=== PATIENT | male | born 1970 | race American Indian/Alaskan Native ===

== ENCOUNTER 2017-02-10 11:36 | Emergency (ER) | payer BC ==
[2017-02-10 11:43] VITALS: TEMP 97.8
[2017-02-10] MEDS ORDERED: Sodium Chloride 0.9% 1,000 ML IV ONE (12:10)
[2017-02-10] MEDS ORDERED: Sodium Chloride 0.9% 1,000 ML ONE (12:23)
[2017-02-10 12:27] LABS: BASO # 0.1 K/uL (0.0-0.2); EOS % 0.6 % (0.0-4.0); HEMATOCRIT 41.8 % (35.0-51.0); LYMPH # 2.4 K/uL (1.0-4.3); LYMPH % 29.5 % (20.0-40.0); MEAN CELL VOLUME 91.2 fL (80.0-94.0); MEAN CORPUSCULAR HEMOGLOBIN 30.8 pg (27.0-31.0); MEAN CORPUSCULAR HGB CONC 33.8 g/dL (33.0-37.0); MEAN PLATELET VOLUME 8.1 fL (7.2-11.7); MONO # 0.8 K/uL (0.0-0.8); MONO % 9.4 % (0.0-10.0); NRBC % 0.1 % (0.0-2.0)
[2017-02-10 12:35] LABS: CHLORIDE 99 mmol/L (98-107); SODIUM 139 mmol/L (132-148)
[2017-02-10 12:37] LABS: AST/SGOT 29 U/L (17-59); BILIRUBIN,TOTAL 1.3 mg/dL (0.2-1.3); CARBON DIOXIDE 25 mmol/L (22-30); GFR AFRICAN-AMERICAN > 60
[2017-02-10 12:38] LABS: ALB/GLOB RATIO 1.4 (1.0-2.1); ALKALINE PHOSPHATASE 48 U/L (38-126); ALT/SGPT 24 U/L (21-72); BLOOD UREA NITROGEN 15 mg/dL (9-20); CALCIUM 8.7 mg/dl (8.6-10.4); GLUCOSE,RANDOM 85 mg/dL (75-110); TOTAL PROTEIN 7.5 g/dL (6.3-8.3)
--- NOTE | 2017-02-10 12:42 | C.PDOC ---
History Of Present Illness 46 y/o male no prior history presents to the ED with complains of abdominal pain which onset yesterday with associated nausea. Pain is worse in the epigastric region. Pt denies vomiting, diarrhea, chest pain, SOB, bloody stool or any other complaints. Pt started endomethacin for leg pain yesterday. Time Seen by Provider: 02/10/17 12:08 Chief Complaint (Nursing): Abdominal Pain History Per: Patient History/Exam Limitations: no limitations Onset/Duration Of Symptoms: Hrs Severity: Moderate Location Of Pain/Discomfort: Epigastric Radiation Of Pain To:: None Quality Of Discomfort: "Pain" Associated Symptoms: Nausea. denies: Fever, Chills, Vomiting Exacerbating Factors: None Alleviating Factors: None Recent travel outside of the [place]: No Past Medical History Reviewed: Historical Data, Nursing Documentation, Vital Signs Vital Signs: Last Vital Signs Temp 97.8 F 02/10/17 11:41 Pulse 66 02/10/17 13:32 Resp 16 02/10/17 13:32 BP 124/75 02/10/17 13:32 Pulse Ox 100 02/10/17 13:32 Family History: States: Unknown Family Hx - Social History Hx Alcohol Use: No (PT DENIES) Hx Substance Use: No (PT DENIES) - Immunization History Hx Tetanus Toxoid Vaccination: No Hx Influenza Vaccination: No Hx Pneumococcal Vaccination: No Review Of Systems Except As Marked, All Systems Reviewed And Found Negative. Constitutional: Negative for: Fever, Chills Cardiovascular: Negative for: Chest Pain Respiratory: Negative for: Shortness of Breath Gastrointestinal: Positive for: Nausea, Abdominal Pain. Negative for: Vomiting , Hematochezia Physical Exam - Physical Exam Appears: Non-toxic, No Acute Distress Skin: Warm, Dry, No Rash Head: Atraumatic, Normacephalic Neck: Normal ROM, Supple Chest: Symmetrical Cardiovascular: Rhythm Regular, No Murmur Respiratory: Normal Breath Sounds, No Rales, No Rhonchi, No Wheezing Gastrointestinal/Abdominal: Soft, Tenderness (epigastric), No Guarding, No Rebound Extremity: Normal ROM, No Pedal Edema Extremity: Bilateral: Atraumatic Neurological/Psych: Oriented x3, Normal Motor, Normal Sensation ED Course And Treatment - Laboratory Results Result Diagrams: 02/10/17 12:20 02/10/17 12:20 O2 Sat by Pulse Oximetry: 99 (on room air) Pulse Ox Interpretation: Normal Medical Decision Making Medical Decision Making: consider pud, gastritis, pancreatiits Plan: * labs * UA * IV fluids * Zofran, protonix * 203: bedside US shows no gallbladder pathology. pain improved. will d/c Disposition - Disposition Referrals: Efren Argueta MD [Staff Provider] - Disposition: HOME/ ROUTINE Disposition Time: 14:02 Condition: STABLE Additional Instructions: please follow up with your doctor. return to er with worsening symptoms or concerns. Prescriptions: Famotidine [Pepcid] 20 mg PO DAILY #20 tab Instructions: Acute Abdominal Pain (ED) - Clinical Impression Clinical Impression: Abdominal pain - Scribe Statement The provider has reviewed the documentation as recorded by the Fercho Rajan Provider Attestation: All medical record entries made by the Fercho were at my direction and personally dictated by me. I have reviewed the chart and agree that the record accurately reflects my personal performance of the history, physical exam, medical decision making, and the department course for this patient. I have also personally directed, reviewed, and agree with the discharge instructions and disposition.
[2017-02-10 12:43] LABS: RBC URINE 2 /hpf (0-3); URINE BACTERIA RARE (<OCC); URINE BILIRUBIN NEGATIVE (NEGATIVE); URINE BLOOD NEGATIVE (NEGATIVE); URINE COLOR Yellow (YELLOW); URINE GLUCOSE (UA) NORMAL (Normal); URINE KETONE 1+ mg/dL (NEGATIVE); URINE LEUKOCYTE ESTERASE NEG Leu/uL (Negative); URINE PROTEIN NEGATIVE (NEGATIVE); WBC URINE 1 /hpf (0-5)
[2017-02-10 12:46] LABS: INR 1.1
[2017-02-10 13:33] VITALS: BP 124/75; PULSE 66; RESP 16
[2017-02-10 14:03] VITALS: O2SAT 99
== END 2017-02-10 14:20 | disposition home or self-care (01) ==
LOC: C.ER 11:36
DX: R10.13 Epigastric pain (principal)
CPT/HCPCS: 80053; 81001; 83690; 85025; 85610; 85730; 96361; 96374; 96375; 99284; C9113; J2405; J7040

== ENCOUNTER 2017-03-17 07:25 | Emergency (ER) | payer BC ==
[2017-03-17 07:31] VITALS: BP 113/69; PULSE 68; RESP 17; TEMP 98.3; O2SAT 99
--- NOTE | 2017-03-17 09:38 | C.PDOC ---
History Of Present Illness 46-year-old old male, presents to the emergency department with complaints of sore throat since yesterday, that is associated with a subjective fever and swelling in neck. Denies cough, nausea/vomiting, symptoms, or any other associated symptoms. No other complaints at this time. Chief Complaint (Nursing): ENT Problem History Per: Patient History/Exam Limitations: no limitations Onset/Duration Of Symptoms: Days Current Symptoms Are (Timing): Still Present Severity: Moderate Past Medical History Reviewed: Historical Data, Nursing Documentation, Vital Signs Vital Signs: Last Vital Signs Temp 98.3 F 03/17/17 07:30 Pulse 68 03/17/17 07:30 Resp 17 03/17/17 07:30 BP 113/69 03/17/17 07:30 Pulse Ox 99 03/17/17 09:58 - Medical History PMH: Denies: Depression Family History: States: Unknown Family Hx - Social History Hx Alcohol Use: No (PT DENIES) Hx Substance Use: Yes - Immunization History Hx Tetanus Toxoid Vaccination: No Hx Influenza Vaccination: No Hx Pneumococcal Vaccination: No Review Of Systems Except As Marked, All Systems Reviewed And Found Negative. Constitutional: Positive for: Fever. Negative for: Chills ENT: Positive for: Throat Pain Respiratory: Negative for: Cough, Shortness of Breath Gastrointestinal: Negative for: Vomiting Musculoskeletal: Positive for: Neck Pain Skin: Negative for: Rash Physical Exam - Physical Exam Appears: Non-toxic, No Acute Distress Skin: Warm, Dry, No Rash Head: Atraumatic, Normacephalic Eye(s): bilateral: Normal Inspection, PERRL Nose: Normal Oral Mucosa: Moist Lips: Normal Appearing Throat: Erythema, No Exudate Neck: Normal ROM, Supple, Other (lymphadenopathy to right anterior neck) Respiratory: No Accessory Muscle Use Extremity: Normal ROM Neurological/Psych: Oriented x3, Normal Speech ED Course And Treatment O2 Sat by Pulse Oximetry: 99 Medical Decision Making Medical Decision Making: Impression Viral Syndrome Plan * Ibuprofen * Reassess and Disposition Dispo Patient will be discharged for outpatient f/u with PMD. All questions answered. Patient is agreeable with plan. Disposition - Disposition Referrals: [facility] Emeka Quevedo, [Non-Staff] - Disposition: HOME/ ROUTINE Disposition Time: 08:00 Condition: GOOD Additional Instructions: Thank you for letting us take care of you today. Your provider was Dr. Walls. You were treated for sore throat. The emergency medical care you received today was directed at your acute symptoms. If you were prescribed any medication, please fill it and take as directed. It may take several days for your symptoms to resolve. Return to the Emergency Department if your symptoms worsen, do not improve, or if you have any other problems. Please contact your doctor or call one of the physicians/clinics you have been referred to that are listed on the Patient Visit Information form that is included in your discharge packet. Bring any paperwork you were given at discharge with you along with any medications you are taking to your follow up visit. Our treatment cannot replace ongoing medical care by a primary care provider (PCP) outside of the emergency department. Thank you for allowing the [facility] team to be part of your care today. Follow up with your doctor in 3-4 days to be re-evaluated. Prescriptions: Amoxicillin [Amoxil 500 mg Cap] 500 mg PO Q8 #21 cap Ibuprofen [Motrin] 600 mg PO Q6 PRN #20 tab PRN Reason: Pain, Moderate (4-7) Instructions: Pharyngitis (ED) - Clinical Impression Clinical Impression: Pharyngitis - Scribe Statement The provider has reviewed the documentation as recorded by the Fercho Potter All medical record entries made by the Francisco Jibgeraldine were at my direction and personally dictated by me. I have reviewed the chart and agree that the record accurately reflects my personal performance of the history, physical exam, medical decision making, and the department course for this patient. I have also personally directed, reviewed, and agree with the discharge instructions and disposition.
== END 2017-03-17 08:20 | disposition home or self-care (01) ==
LOC: C.ER 07:25
DX: J02.9 Acute pharyngitis, unspecified (principal)

== ENCOUNTER 2017-07-12 08:14 | Emergency (ER) | payer BC ==
[2017-07-12 08:28] VITALS: BMI 24.0
[2017-07-12 08:30] VITALS: BP 98/61; PULSE 61; RESP 16; TEMP 98.5; O2SAT 100
--- NOTE | 2017-07-12 09:15 | RAD ---
PROCEDURE: Right Thumb radiographs. HISTORY: pain/swelling 1st MCP COMPARISON: None. TECHNIQUE: AP radiograph of the right hand, as well as spot oblique and lateral images of thumb were obtained. FINDINGS: RIGHT THUMB: No right thumb fracture or focal lytic lesion. . Possible minimal 1 mm spur - ulnar-sided - 1st digit proximal phalanx bordering the metacarpal phalangeal joint Remainder of the right hand (as seen on the AP view) grossly unremarkable. No erosions noted JOINTS: Normal. SOFT TISSUES: There may be minimal soft tissue swelling about the 1st meta carpal phalangeal joint. OTHER FINDINGS: None. IMPRESSION: Probable trace early degenerative changes metacarpal phalangeal joint. No erosions seen. Joint space fairly well preserved. Possible minimal soft tissue swelling here is well
--- NOTE | 2017-07-12 09:34 | C.PDOC ---
History Of Present Illness Patient is a 46 y/o male presents to the ED for evaluation of right thumb pain and swelling since yesterday. Patient states he unknowingly pulled his thumb backwards when reaching into his pocket yesterday, and fells he may have strained the thumb. Otherwise, denies any other injury, change in sensation, skin changes, fever, chills, or any other associated symptoms at this time. Time Seen by Provider: 07/12/17 08:33 Chief Complaint (Nursing): Finger,Hand,&Wrist History Per: Patient History/Exam Limitations: no limitations Onset/Duration Of Symptoms: Days (1) Current Symptoms Are (Timing): Still Present Quality: "Pain" Severity: Moderate Exacerbating Factor(s): Nothing Recent travel outside of the [place]: No Additional History Per: Patient Past Medical History Reviewed: Historical Data, Nursing Documentation, Vital Signs Vital Signs: Last Vital Signs Temp 98.5 F 07/12/17 08:28 Pulse 61 07/12/17 08:28 Resp 16 07/12/17 08:28 BP 98/61 L 07/12/17 08:28 Pulse Ox 100 07/12/17 11:07 - Medical History PMH: Denies: Depression Family History: States: Unknown Family Hx - Social History Hx Alcohol Use: No (PT DENIES) Hx Substance Use: Yes - Immunization History Hx Tetanus Toxoid Vaccination: No Hx Influenza Vaccination: No Hx Pneumococcal Vaccination: No Review Of Systems Except As Marked, All Systems Reviewed And Found Negative. Constitutional: Negative for: Fever, Chills Musculoskeletal: Positive for: Hand Pain (right thumb pain and swelling) Skin: Negative for: Rash, Bruising Neurological: Negative for: Weakness, Numbness Physical Exam - Physical Exam Appears: Non-toxic, No Acute Distress Skin: Warm, Dry, No Other (no erythema or warmth to right thumb) Head: Atraumatic, Normacephalic Extremity: Normal ROM (FROM of right hand digits), Tenderness (right thumb MCP joint), Capillary Refill (<2 sec.), No Deformity, Swelling (right thumb MCP joint) Extremity: Bilateral: Normal Color And Temperature, Normal ROM Pulses: Left Radial: Normal, Right Radial: Normal Neurological/Psych: Oriented x3, Normal Speech, Normal Cognition, Normal Motor, Normal Sensation ED Course And Treatment O2 Sat by Pulse Oximetry: 100 (RA) Pulse Ox Interpretation: Normal - Other Rad Right thumb x-ray X-Ray: Viewed By Me, Read By Radiologist Interpretation: HISTORY: pain/swelling 1st MCP. COMPARISON: None. TECHNIQUE : AP radiograph of the right hand, as well as spot oblique and lateral images of thumb were obtained. FINDINGS: RIGHT THUMB: No right thumb fracture or focal lytic lesion. . Possible minimal 1 mm spur - ulnar-sided - 1st digit proximal phalanx bordering the metacarpal phalangeal joint Remainder of the right hand (as seen on the AP view) grossly unremarkable. No erosions noted. JOINTS: Normal. SOFT TISSUES: There may be minimal soft tissue swelling about the 1st meta carpal phalangeal joint. OTHER FINDINGS: None. IMPRESSION : Probable trace early degenerative changes metacarpal phalangeal joint. No erosions seen. Joint space fairly well preserved. Possible minimal soft tissue swelling here is well Progress Note: Right hand thumb x-ray ordered and reviewed. Thumb spica splint by CP and checked by me. Patient was instructed to follow up with hand specialist in 1-2 days. Disposition - Disposition Referrals: Maria C Melchor MD [Provisional Staff] - Disposition: HOME/ ROUTINE Disposition Time: 09:33 Condition: STABLE Additional Instructions: Follow up with Hand specialist within 2-3 days. Return to ED if feel worse. Prescriptions: Ibuprofen [Motrin Tab] 600 mg PO Q8 #30 tab Instructions: Finger Sprain (ED) Forms: [facility] (Divehi) - Clinical Impression Clinical Impression: Thumb sprain - PA / BARIATRIC PHYSICIAN / Resident Statement MD/DO has reviewed & agrees with the documentation as recorded. - Scribe Statement The provider has reviewed the documentation as recorded by the Fercho Hutchins All medical record entries made by the Fercho were at my direction and personally dictated by me. I have reviewed the chart and agree that the record accurately reflects my personal performance of the history, physical exam, medical decision making, and the department course for this patient. I have also personally directed, reviewed, and agree with the discharge instructions and disposition.
== END 2017-07-12 10:20 | disposition home or self-care (01) ==
LOC: C.ER 08:14
DX: S63.609A Unspecified sprain of unspecified thumb, initial encounter (principal); X50.9XXA Other and unspecified overexertion or strenuous movements or postures, initial encounter; Y92.9 Unspecified place or not applicable

== ENCOUNTER 2018-09-26 10:02 | Emergency (ER) | payer BC ==
[2018-09-26 10:02] VITALS: BMI 24.6
[2018-09-26 10:18] VITALS: RESP 16; TEMP 97.8; O2SAT 98
--- NOTE | 2018-09-26 11:17 | C.PDOC ---
History Of Present Illness 48 year old male presents to the ED for evaluation of right shoulder pain and deformity s/p injury prior to arrival. 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 Denies numbness, tingling, fever, and any other associated symptoms. Time Seen by Provider: 09/26/18 10:42 Chief Complaint (Nursing): Upper Extremity Problem/Injury History Per: Patient History/Exam Limitations: no limitations Onset/Duration Of Symptoms: Other (prior to arrival.) Current Symptoms Are (Timing): Still Present Past Medical History Reviewed: Historical Data, Nursing Documentation, Vital Signs Vital Signs: Last Vital Signs Temp 97.8 F 09/26/18 10:14 Pulse 61 09/26/18 10:14 Resp 16 09/26/18 10:14 BP 115/69 09/26/18 10:14 Pulse Ox 98 09/26/18 10:14 - Medical History PMH: Denies: Depression, Chronic Kidney Disease Family History: States: Unknown Family Hx - Social History Hx Alcohol Use: No (PT DENIES) Hx Substance Use: Yes - Immunization History Hx Tetanus Toxoid Vaccination: No Hx Influenza Vaccination: No Hx Pneumococcal Vaccination: No Review Of Systems Constitutional: Negative for: Fever Musculoskeletal: Positive for: Other (right shoulder pain and deformity.) Neurological: Negative for: Weakness, Numbness, Incoordination Physical Exam - Physical Exam Appears: Well, Non-toxic Skin: Normal Color, Warm, Dry Head: Atraumatic, Normacephalic Eye(s): bilateral: Normal Inspection, PERRL Oral Mucosa: Moist Chest: Symmetrical, No Deformity Cardiovascular: Rhythm Regular, No Murmur Respiratory: Normal Breath Sounds, No Rales, No Rhonchi, No Wheezing Extremity: Normal ROM (to the right shoulder. normal ROM in the fingers. ), Deformity (deformity distal to the right clavicle.), Other (good strength to the right shoulder.) Pulses: Left Radial: Normal, Right Radial: Normal Neurological/Psych: Oriented x3, Normal Speech, Normal Motor, Normal Sensation, Normal Reflexes ED Course And Treatment O2 Sat by Pulse Oximetry: 98 (RA) Pulse Ox Interpretation: Normal Medical Decision Making Medical Decision Making: Plan: -CXR Tordal RT Shoulder Xray IMPRESSION: The acromioclavicular joint space appears widened and the distal clavicle mildly superiorly displaced consistent with acromioclavicular separation. Soft tissue swelling. Xray shows joint separation. Patinet placed in sling, discharged with pain medication, and given ortho follow-up Disposition - Disposition Referrals: Zack Castanon III, MD [Staff Provider] - Disposition: HOME/ ROUTINE Disposition Time: 11:52 Condition: GOOD Additional Instructions: Follow-up with Dr. Garcia within 2 days. Keep arm in sling. Motrin for mild pain. Percocet for severe pain. Return to ED if condition worsens. Prescriptions: oxyCODONE/Acetaminophen [Percocet 5/325 mg Tab] 1 ea PO Q6 PRN #10 tab PRN Reason: Pain, Severe (8-10) Instructions: Shoulder Forms: [facility] (American) - Clinical Impression Clinical Impression: AC separation - Scribe Statement The provider has reviewed the documentation as recorded by the Scribe (Ofe Bhakta) Provider Attestation: All medical record entries made by the Scribe were at my direction and personally dictated by me. I have reviewed the chart and agree that the record accurately reflects my personal performance of the history, physical exam, medical decision making, and the department course for this patient. I have also personally directed, reviewed, and agree with the discharge instructions and disposition.
--- NOTE | 2018-09-26 11:29 | C.PDOC ---
Time Seen by Provider: 09/26/18 10:42 Chief Complaint (Nursing): Upper Extremity Problem/Injury Past Medical History Vital Signs: Last Vital Signs Temp 97.8 F 09/26/18 10:14 Pulse 61 09/26/18 10:14 Resp 16 09/26/18 10:14 BP 115/69 09/26/18 10:14 Pulse Ox 98 09/26/18 10:14 - Medical History PMH: Denies: Depression, Chronic Kidney Disease Family History: States: Unknown Family Hx - Social History Hx Alcohol Use: No (PT DENIES) Hx Substance Use: Yes - Immunization History Hx Tetanus Toxoid Vaccination: No Hx Influenza Vaccination: No Hx Pneumococcal Vaccination: No ED Course And Treatment O2 Sat by Pulse Oximetry: 98 Disposition - Disposition
[2018-09-26] MEDS ORDERED: Oxycodone/Acetaminophen 5/325 mg Tab PO STA (11:45)
[2018-09-26] MEDS ORDERED: Oxycodone/Acetaminophen 5/325 mg Tab ONE (11:51)
--- NOTE | 2018-09-26 12:00 | RAD ---
HISTORY: shoulder and chest pain after trauma COMPARISON: No prior. TECHNIQUE: Chest PA and lateral FINDINGS: LUNGS: No focal consolidation. Please note that chest x-ray has limited sensitivity for the detection of pulmonary masses. PLEURA: No significant pleural effusion identified. No definite pneumothorax . CARDIOVASCULAR: The cardiomediastinal silhouette appears within normal limits of size. No atherosclerotic calcification present. OSSEOUS STRUCTURES: No acute osseous abnormality identified. VISUALIZED UPPER ABDOMEN: Unremarkable. OTHER FINDINGS: None. IMPRESSION: No acute traumatic pathology identified.
[2018-09-26 12:02] VITALS: BP 126/85; PULSE 81
--- NOTE | 2018-09-26 12:03 | RAD ---
PROCEDURE: Radiographs of the Right Shoulder HISTORY: shoulder pain COMPARISON: No prior. FINDINGS: BONES: No acute displaced fracture. The distal clavicle and underlying ribs appear intact. JOINTS: The acromioclavicular joint space appears widened and the distal clavicle mildly displaced consistent with acromioclavicular separation. SOFT TISSUES: Soft tissue swelling. No evidence of radiopaque foreign body. IMPRESSION: The acromioclavicular joint space appears widened and the distal clavicle mildly superiorly displaced consistent with acromioclavicular separation. Soft tissue swelling.
== END 2018-09-26 12:01 | disposition home or self-care (01) ==
LOC: C.ER 10:02
DX: S43.101A Unspecified dislocation of right acromioclavicular joint, initial encounter (principal); X50.9XXA Other and unspecified overexertion or strenuous movements or postures, initial encounter